=== PATIENT | female | born 1955 | race African-American/Black ===

== ENCOUNTER 2017-04-06 10:04 | Observation (INO) ==
[2017-04-06] MEDS ORDERED: SODIUM CHLORIDE 0.9% 1,000 ML IV STA (10:51)
--- NOTE | 2017-04-06 10:53 | Emergency Department Note ---
Daniel Goodrich Rolonda, am scribing for, and in the presence of, Joe Jamison MD 10: 51. Yaquelin Goodrich James D, MD, personally performed the services described in this documentation, ascribed by Kezia Sanchez in my presence, and it is both accurate and complete . Arrival - Arrival Chief Complaint: Dizziness Stated Complaint: rectal bleed/dizzy ED Nursing Triage Note: Pt c/o weakness, fall, dizziness, and some dark and bright red blood clots in her stool. Mode of Arrival: Ambulatory Limitations: No Limitations Source: Old Records Reviewed, RN Notes Reviewed - History of Present Illness HPI Narrative: Pt is a 62 y/o female who presents to the ED with c/o with an onset of yesterday. Pt has a PMHx HTN and TIA. Pt has PSHx of Cholecystectomy and Colonoscopy. Pt states that she became dizzy and fell yesterday. She confirms that standing up worsens the sxs and last BM was Thursday. She states that she did not eat at all yesterday before going to latter-day and when she got home she attempted to drink Gatorade and she passed out. She states that she has soreness on her right side and she feels "uncomfortable" in her lower abdomen region. She states that she drank 1/2 bottle of Gatorade today. She states that her abdomen is really tender. She stated she noticed bright red and dark clots in her stool while attempting to use the bathroom. Pt denies CP and SOB but confirms diaphoresis. No other complaint/pain in ED. Onset (ago): day(s) Consistency: constant Severity: moderate Severity scale (1-10): 4 Allergies/Adverse Reactions: Allergies Allergy/AdvReac Type Severity Reaction Status Date / Time codeine Allergy Severe ITCHING Verified 11/30/14 05:06 lisinopril Allergy Severe NUMBNESS Verified 11/30/14 05:06 losartan [From Hyzaar] Allergy Severe NUMBNESS Verified 11/30/14 05:06 Home Medications: Home Medications Medication Instructions Recorded Confirmed Type Aspirin [Children's Aspirin] 81 mg PO DAILY 11/30/14 08/17/16 History Nadolol [Corgard] 40 mg PO DAILY 11/30/14 08/17/16 History Triamterene/Hctz 37.5-25 Tab 1 tablet PO DAILY 11/30/14 08/17/16 History [Maxzide 37.5-25] Azithromycin Tab [Zithromax Tab] 250 mg PO DAILY #6 tablet 08/17/16 Rx Cholecalciferol (Vitamin D3) 2,000 unit PO DAILY 08/17/16 08/17/16 History [Vitamin D3] Fluticasone 50 Mcg Nasal [place] 1 spray BOTH NARES DAILY 08/17/16 08/17/16 History [Flonase Nasal [place]] Levothyroxine Tab [Synthroid Tab] 75 mcg PO DAILY@0700 08/17/16 08/17/16 History Sulfameth/Trimeth 800-160 Tab 1 tablet PO BID #14 tablet 09/05/16 Rx [Bactrim Ds Tab] Review of System - Review of System 12 point system: reviewed and no additional remarkable complaints except as stated - Review of System Constitutional: Present: chills, diaphoresis, weakness Eyes: Absent: discharge Head/Ears/Nose/Throat: Absent: earache Respiratory: Absent: cough Cardiovascular: Absent: chest pain Gastrointestinal: Absent: abdominal pain Genitourinary female: Present: other (rectal bleeding; "blood clots in stool"). Absent: hematuria Musculoskeletal: Absent: arm pain, back pain Skin: Absent: rash Neurological: Present: vertigo. Absent: headache Psychiatric: Absent: anxiety Endocrine: Absent: cold intolerance Hematological/Lymphatic: Absent: easy bleeding Allergic/Immunologic: Absent: facial swelling Medical,Surgical,& Family Hx - Medical History Cardio: History of: Hypertension Neurology: History of: TIA Endocrine: History of: Dyslipidemia, Thyroid Disorder ("thyroid cancer", status post thyroidectomy) - Surgical History Cardiac Surgeries: Sugical HX of: Cardiac Catheterization (negative) Thoracic Surgeries: Patient denies;: Organ Transplant HEENT Surgeries: Surgical HX of: Thyroid Surgery (thyroidectomy) Abdominal Surgeries: Surgical HX of: Cholecystectomy (1988), Colonoscopy (2013) Reproductive Surgeries: Surgical HX of;: Breast Surgery (BIOPSY 2012), Hysterectomy, Tubal Ligation - Family History Family History: Reports;: Family Cancer, Family Diabetes, Family Heart Disease, Family Hypertension - Social History Smoking Status: Never smoker Exam Vital Signs: Vital Signs Temperature 98.7 F 04/06/17 12:21 Pulse Rate 74 04/06/17 12:21 Respiratory Rate 18 04/06/17 12:21 Blood Pressure 169/74 04/06/17 12:21 O2 Sat by Pulse Oximetry 99 04/06/17 10:09 GENERAL: This is a well-nourished well-developed black female in no apparent distress. VITAL SIGNS: Reviewed HEENT: Head is atraumatic and normocephalic. Pupils are equal round react to light. Extraocular movements are intact. Oropharynx is benign with moist mucous membranes. NECK: Neck is soft and supple without tenderness. There are no masses. There is no lymphadenopathy. LUNGS: Lungs are clear to auscultation. Chest rises symmetrically. There is no chest wall tenderness. CV: Heart is regular rate and rhythm without murmurs rubs or gallops. ABDOMEN: Abdomen is soft, nontender to palpation. There are no abdominal abnormal masses palpated. There is no organomegaly. Bowel sounds are present and active. SKIN: Skin is warm and dry. No rash. EXTREMITIES: Patient has full range of motion without tenderness. There is no pedal edema. NEUROLOGIC: Awake alert and oriented 4 per Cranial nerves II through XII are intact. Motor is 5 over 5 in all extremities bilaterally. Course - Consultations Consultation #1: Discussed with hospitalist. Patient will be admitted to their service. Time: 13:51 Results - Labs CBC & BMP: 04/06/17 11:42 04/06/17 11:42 Lab Results: I have reviewed the patients labs - Diagnostic Findings Procedure: Abdominal x-ray: image reviewed by me (Nonspecific gas pattern, no free air, gas in the rectum.), Chest x-ray: image reviewed by me (No cardiomegaly, no infiltrates.) Disposition Clinical Impression: Near syncope, Abdominal pain, Lower GI bleed Case discussed with: patient
--- NOTE | 2017-04-06 11:39 | XRay Report ---
2 view abdomen. Indication: Generalized abdominal pain. No previous study. The heart is normal in size. The lung bases are clear. Surgical clips are noted in the right upper quadrant. The bowel gas pattern is within the range of normal. No evidence of obstruction. No abnormal calcifications over the renal outlines. Degenerative changes are seen within the spinal column. Sclerosis along both SI joints consistent with sacroiliitis. Impression: No acute abnormality. PROCEDURE INTERPRETED AT [facility] DEPARTMENT OF RADIOLOGY Final Report Signed by: Dr. Yazmin Stovall
--- NOTE | 2017-04-06 11:41 | XRay Report ---
2 view chest. Indication: Shortness of breath. Comparison: August 17, 2016. The heart and mediastinal contours are unremarkable. The pulmonary vasculature is normal. There is no consolidation, pneumothorax, or pleural effusion. Degenerative changes are noted within the thoracic spine. Surgical clips in the right upper quadrant. Impression: No acute abnormality. PROCEDURE INTERPRETED AT [facility] DEPARTMENT OF RADIOLOGY Final Report Signed by: Dr. Yazmin Stovall
[2017-04-06 11:46] LABS: Basophils % 0.2 % (0.0-0.8); Eosinophils # 0.1 10*3/uL (0.0-0.87); Eosinophils % 0.8 % (0.00-10.9); Hematocrit 44.8 VOL% (35.7-47.0); Hemoglobin 14.7 GM/DL (12.0-16.0); Immature Granulocytes % 0.4 %; Immature Granulocytes Absolute 0.04 #; Lymphocytes # 1.7 10*3/uL (1.4-4.0); Lymphocytes % 14.9 % (21.3-54.2); Mean Corpuscular HGB Conc 32.8 GM/DL (32-36); Mean Corpuscular Hemoglobin 29 PG (27-34); Mean Corpuscular Volume 89.4 FL (87-102); Mean Platelet Volume 11.9 FL (9.6-12.0); Monocytes # 1.1 10*3/uL (0.11-0.8); Monocytes % 9.5 % (1.7-12.7); Neutrophils # 8.4 10*3/uL (1.4-7.4); Neutrophils % 74.2 % (38.7-73.9); Platelet Count 191 T/CUMM (130-400); Red Blood Count 5.01 MC/CUMM (3.8-5.5); Red Cell Distribution Width 12.9 % (9.3-17.3); White Blood Count 11.3 T/CUMM (4-12)
[2017-04-06 11:56] LABS: INR 1.1; PT Patient Result 11.2 SECS
[2017-04-06 12:26] LABS: Calcium 9.6 MG/DL (8.5-10.1); Osmolality,Calculated 276.7 MOS/KG (273-304); Potassium 3.8 MMOL/L (3.5-5.1)
--- NOTE | 2017-04-06 14:28 | Hospitalist History & Physical ---
Assessment and Plan - Time spent with patient Time spent with patient: Greater than 30 minutes (1) Lower GI bleed Status: Acute Assessment and plan: Admit to Hospital Services to ICU for overnight close monitoring. Will consult GI. Will order IV fluids. Will repeat a.m. labs. Will discuss with Dr Greene for further recommendations. Current Visit: Yes (2) Abdominal pain Status: Acute Current Visit: Yes (3) Near syncope Status: Acute Assessment and plan: Patient reports feeling dizzy and experiencing a syncopal episode yesterday. Will admit to ICU for close observation. Will monitor a.m. labs. Current Visit: Yes History of Present Illness Chief complaint: rectal bleeding, GI bleed History of present illness: Ms. Stack is a 62 year old black female with PMHx Hypertension, TIA, thyroid disorder, and dyslipidemia presented to the ED for further evaluation of blood clots in stool both dark and bright red in color. She reports feeling tired and weak today and abdomen with generalized tenderness. She reports that she was dizzy yesterday and experienced syncopal episode. She denies shortness of breath, fever, chills, or chest pain. She reports last GI colonscopy was [address] Laguna and was with negative findings. In ED: Abd XRAY: no acute abnormality. CXR: no acute abnormality. LABS: H& H 14.7 & 44.8. BUN 19 and Creatinine 1.10. After discussion with Dr Jamison in the ED and Dr Greene with Hospitalist Medicine , it was agreed to admit patient for further evaluation of GI bleeding with syncopal episode. Home medications will be reviewed and reconciliation to follow. Home Medications Medication Instructions Recorded Confirmed Type Aspirin [Children's Aspirin] 81 mg PO DAILY 11/30/14 08/17/16 History Nadolol [Corgard] 40 mg PO DAILY 11/30/14 08/17/16 History Triamterene/Hctz 37.5-25 Tab 1 tablet PO DAILY 11/30/14 08/17/16 History [Maxzide 37.5-25] Azithromycin Tab [Zithromax Tab] 250 mg PO DAILY #6 tablet 08/17/16 Rx Cholecalciferol (Vitamin D3) 2,000 unit PO DAILY 08/17/16 08/17/16 History [Vitamin D3] Fluticasone 50 Mcg Nasal [place] 1 spray BOTH NARES DAILY 08/17/16 08/17/16 History [Flonase Nasal [place]] Levothyroxine Tab [Synthroid Tab] 75 mcg PO DAILY@0700 08/17/16 08/17/16 History Sulfameth/Trimeth 800-160 Tab 1 tablet PO BID #14 tablet 09/05/16 Rx [Bactrim Ds Tab] Allergies Allergy/AdvReac Type Severity Reaction Status Date / Time codeine Allergy Severe ITCHING Verified 11/30/14 05:06 lisinopril Allergy Severe NUMBNESS Verified 11/30/14 05:06 losartan [From Hyzaar] Allergy Severe NUMBNESS Verified 11/30/14 05:06 Medical,Surgical,& Family Hx - Medical History Cardio: History of: Hypertension Neurology: History of: TIA Endocrine: History of: Dyslipidemia, Thyroid Disorder ("thyroid cancer", status post thyroidectomy) - Surgical History Cardiac Surgeries: Sugical HX of: Cardiac Catheterization (negative) Thoracic Surgeries: Patient denies;: Organ Transplant HEENT Surgeries: Surgical HX of: Thyroid Surgery (thyroidectomy) Abdominal Surgeries: Surgical HX of: Cholecystectomy (1988), Colonoscopy (2013) Reproductive Surgeries: Surgical HX of;: Breast Surgery (BIOPSY 2012), Hysterectomy, Tubal Ligation - Family History Family History: Reports;: Family Cancer, Family Diabetes, Family Heart Disease, Family Hypertension - Social History Smoking Status: Never smoker Frequency of Alcohol Use: None Type of Drug Use: None Marital Status: Lives With:: Spouse Functional capacity: independent ambulation Review of systems: ROS completed and pertinent positives and negatives in HPI. Exam - Constitutional Vitals: Period Temp Pulse Resp BP Sys/Monzon Pulse Ox Last 24 Hr 98.7 F-98.7 F 74-74 18-18 169-169/74-74 99 General appearance: normal weight - Head Head exam: Present: normal inspection - Eye Eye exam: Present: EOMI Pupils: Present: FREDERIC - Neck Neck exam: Present: normal inspection. Absent: thyromegaly - Respiratory Respiratory exam: Present: clear to auscultation bilaterally. Absent: rhonchi, stridor, wheezes - Cardiovascular Cardiovascular exam: Present: regular rate and rhythm - GI/Abdominal GI/Abdominal exam: Present: normal bowel sounds, tenderness (generalized tenderness), soft. Absent: ascites, distended, guarding, rebound - Extremities Exam Extremities exam: Present: full ROM. Absent: edema - Neurological Exam Neurological exam: Present: alert, oriented X3 - Psychiatric Psychiatric exam: Present: normal affect, normal mood - Skin Skin exam: Present: normal color, warm, dry Results - Labs CBC & BMP: 04/06/17 11:42 04/06/17 11:42 Lab Results: I have reviewed the past 24 hour labs Labs: INR 1.1 PT 11.2 - Diagnostic Findings Procedure: Abdominal x-ray: report reviewed by me (no acute abnormality), Chest x-ray: report reviewed by me (no acute abnormality)
[2017-04-06] MEDS: SODIUM CHLORIDE 0.9% 1,000 ML IV SCH ×2 (15:47→23:50)
--- NOTE | 2017-04-06 16:05 | Gastrointestinal Consult Note ---
Assessment and Plan (1) Lower GI bleed Status: Acute Assessment and plan: This patient likely has 1 to causes for her bleeding, probably diverticular versus ischemic colitis. Rectal bleeding would not be producing the pain in the left lower abdomen although this may be due to residual constipation as well. We will perform colonoscopy tomorrow in order to define the source of the bleeding. It is possible that Dr. Smith may have metastatic colon cancer. If we do not find any polyps will be 5 years before she requires her next colonoscopy. The patient does have a family history of polyps in her father. Risks of the procedure include but are not limited to: Bleeding, infection, perforation, cardiac and pulmonary compromise. Current Visit: Yes (2) Left lower quadrant pain Status: Acute Assessment and plan: Again I suspect this may be due to either lingering constipation versus ischemic colitis. We will check during colonoscopy tomorrow. If no polyps are seen the patient is likely able to wait for another 5 years before her next colonoscopy will be required. Hopefully she will get clean with the above prep. Current Visit: Yes (3) History of gastritis Status: Acute Assessment and plan: This patient does have a history of gastritis and should be taking some Protonix. We have added this to her medication list and should help with her food tolerance. Current Visit: Yes (4) Family history of polyps in the colon Status: Acute Assessment and plan: These were discovered in her father. Current Visit: Yes History of Present Illness Chief complaint: Maroon stools, history of diverticulosis, left lower quadrant pain History of present illness: Ms. Stack is a 62 year old female who is well-known to me from previous upper endoscopy done back on 07/20/15 when the patient was noted to have a tortuous esophagus which was dilated to 57 [place] in order to treat underlying dysphagia. The patient also had a history of GERD and a hiatal hernia with diffuse gastritis which was biopsied for Helicobacter pylori. The biopsies demonstrated no Helicobacter pylori, no gross evidence of lymphoma was seen and biopsies taken from the small bowel failed to show any celiac sprue. She has done well since that time and has not required repeat dilation. The patient had had a previous colonoscopy done by Dr. Raul Smith [facility] at [facility] on 12/21/13 at which time he had seen diverticulosis affecting the descending and sigmoid colon and noted this was a difficult exam due to pelvic adhesions. He stated the patient had a family history of polyps but no polyps were found in her during that exam. He suggested colonoscopy occur again another 5 years. The patient then was in her state of usual health up until Thursday when she developed a state of extreme weakness with some slight dizziness that forced her to lay down on the bed for some minutes and when she got up she was feeling quite "wobbly" she had had some constipation and took some milk of magnesia back on Thursday before this and had not had a Blubaugh been on Thursday but today got up and had a number of stools that were noted to be bright red with some clots initially now has become fairly dark maroon. The patient does have some left lower quadrant pain but states this comes and goes and is not a crampy wavelike contraction, more like one would feel with constipation. Her next colonoscopy was due to be done in December 2018. Her hematocrit here has not changed significantly yet. Her only anti-inflammatory agent is a single baby dose aspirin per day. She has not ingested anything unusual, she is not having any fevers or chills. Currently her hematocrit is 44.8, stools are grossly guaiac positive and maroon. Home Medications Medication Instructions Recorded Confirmed Type Aspirin [Children's Aspirin] 81 mg PO DAILY 11/30/14 04/06/17 History Nadolol [Corgard] 40 mg PO DAILY 11/30/14 04/06/17 History Triamterene/Hctz 37.5-25 Tab 1 tablet PO DAILY 11/30/14 04/06/17 History [Maxzide 37.5-25] Azithromycin Tab [Zithromax Tab] 250 mg PO DAILY #6 tablet 08/17/16 Rx Cholecalciferol (Vitamin D3) 2,000 unit PO DAILY 08/17/16 04/06/17 History [Vitamin D3] Fluticasone 50 Mcg Nasal [place] 1 spray BOTH NARES DAILY 08/17/16 08/17/16 History [Flonase Nasal [place]] Levothyroxine Tab [Synthroid Tab] 100 mcg PO DAILY@0700 08/17/16 04/06/17 History Sulfameth/Trimeth 800-160 Tab 1 tablet PO BID #14 tablet 09/05/16 Rx [Bactrim Ds Tab] Allergies Allergy/AdvReac Type Severity Reaction Status Date / Time codeine Allergy Severe ITCHING Verified 11/30/14 05:06 lisinopril Allergy Severe NUMBNESS Verified 11/30/14 05:06 losartan [From Hyzaar] Allergy Severe NUMBNESS Verified 11/30/14 05:06 Medical,Surgical,& Family Hx - Medical History Cardio: History of: Hypertension Neurology: History of: TIA Endocrine: History of: Dyslipidemia, Thyroid Disorder ("thyroid cancer", status post thyroidectomy) - Surgical History Cardiac Surgeries: Sugical HX of: Cardiac Catheterization (negative) Thoracic Surgeries: Patient denies;: Organ Transplant HEENT Surgeries: Surgical HX of: Thyroid Surgery (thyroidectomy) Abdominal Surgeries: Surgical HX of: Cholecystectomy (1988), Colonoscopy (2013) Reproductive Surgeries: Surgical HX of;: Breast Surgery (BIOPSY 2012), Hysterectomy, Tubal Ligation - Family History Family History: Reports;: Family Cancer, Family Diabetes, Family Heart Disease, Family Hypertension - Social History Smoking Status: Never smoker Frequency of Alcohol Use: None Type of Drug Use: None Review of systems: Constitutional: Denies fever, chills, and vomiting and mild nausea Eyes: Denies dry eyes, and scleral icterus HENT: Denies headaches Cardiovascular: Denies acute chest pain and claudication Respiratory: Denies shortness of breath, wheezing, and difficulty breathing, denies cough Gastrointestinal: As noted in the HPI Genitourinary: Denies dysuria and hematuria Neurologic: Denies vision loss, and loss of sensation Musculoskeletal: Mild joint swelling, joint stiffness, and muscular weakness Psychiatric: Denies depression and domonique symptoms Heme-Lymph: Denies easy bruising, lymph node enlargement or tenderness, night sweats, excessive bleeding Allergies-immunologic: Denies pruritus and rhinorrhea Exam - Constitutional Vitals: Period Temp Pulse Resp BP Sys/[place]zon Pulse Ox Last 24 Hr 98.7 F-98.7 F 74-74 18-18 169-169/74-74 99 General appearance: no acute distress Exam: Constitutional: Well-developed, well-nourished, alert, and in no acute distress Head and face: Head: Normocephalic atraumatic Eyes: Conjunctiva without injection, no gross scleral icterus, pupils equal and round bilaterally Ears: Intact to conversation in both ears Nose: External appearance is normal, nares patent Mouth: Oral mucous membranes moist without erythema dentition noted to be without erosion Neck: Normal appearance, no masses or tenderness, trachea midline Thyroid: Gland midline and appropriate size for age Respiratory: Normal respiratory effort, clear to auscultation without wheezes, rhonchi or rales Cardiovascular: Regular rate and rhythm, normal S1, S2, the exam is without rubs, murmurs or gallops. Gastrointestinal: Mildly tender to deep palpation in the left lower abdomen to palpation, normal active bowel sounds, tone normal without rigidity or guarding, no masses present, no hepatomegaly, no spleen tip felt. The patient has good tone no external fissures or fistulas stool is maroon and grossly guaiac positive. Lymphatic: Neck without adenopathy, axilla without lymphadenopathy present Musculoskeletal: Right and left lower extremities without evidence of edema Skin and subcutaneous tissue: No rashes or ulcerations noted, normal skin turgor, digits and nails without clubbing/cyanosis/deformities. Neurologic: The patient is grossly oriented to person place and time, cranial nerves show tongue movements are normal with normal tongue extrusion midline, light touch sensation is intact. Psychiatric: No hallucinations or delusions are present, does not appear depressed Results - Labs CBC & BMP: 04/06/17 11:42 04/06/17 11:42
[2017-04-06] MEDS: BISACODYL 5 MG TABLET PO SCH (17:52)
[2017-04-06] MEDS ORDERED: POLYETHYLENE GLYCOL POWDER 255 GM BOTTLE PO ONE (18:00)
[2017-04-06] MEDS ORDERED: MAGNESIUM CITRATE 300 ML BOTTLE PO ONE (21:00)
[2017-04-07] MEDS: BISACODYL 5 MG TABLET PO SCH ×2 (00:35→09:02)
[2017-04-07 05:07] LABS: Hematocrit 43.2 VOL% (35.7-47.0)
[2017-04-07 05:14] LABS: Basophils % 0.4 % (0.0-0.8); Eosinophils # 0.2 10*3/uL (0.0-0.87); Eosinophils % 1.7 % (0.00-10.9); Hematocrit 43.9 VOL% (35.7-47.0); Hemoglobin 14.2 GM/DL (12.0-16.0); Immature Granulocytes % 0.4 %; Immature Granulocytes Absolute 0.04 #; Lymphocytes # 2.1 10*3/uL (1.4-4.0); Lymphocytes % 20.2 % (21.3-54.2); Mean Corpuscular HGB Conc 32.3 GM/DL (32-36); Mean Corpuscular Hemoglobin 30 PG (27-34); Mean Corpuscular Volume 91.1 FL (87-102); Mean Platelet Volume 12.3 FL (9.6-12.0); Monocytes # 0.9 10*3/uL (0.11-0.8); Monocytes % 9.1 % (1.7-12.7); Neutrophils % 68.2 % (38.7-73.9); Platelet Count 192 T/CUMM (130-400); Red Blood Count 4.82 MC/CUMM (3.8-5.5); White Blood Count 10.3 T/CUMM (4-12)
[2017-04-07 05:51] LABS: Albumin 3.7 G/DL (3.4-5.0); Bilirubin,Total 0.9 MG/DL (0.2-1.0); Potassium 3.9 MMOL/L (3.5-5.1); Thyroid Stimulating Hormone 0.321 uIU/ml (0.358-3.74); Total Protein 7.5 G/DL (6.4-8.3)
[2017-04-07] MEDS: SODIUM CHLORIDE 0.9% 1,000 ML IV SCH (07:05)
--- NOTE | 2017-04-07 08:32 | Operative Note ---
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 It does not seem to have produced a significant bleed but will take about 2 weeks to heal. She can be released today, she should restart her aspirin in 2 weeks. If her white count is elevated, might consider prophylactic antibiotics to decrease bacterial translocation) Procedure: PROCEDURE: Colonoscopy with hot biopsy polypectomy and cold biopsy for pathology REFERRING PHYSICIAN: Kwesi Greene MD INDICATIONS: Left lower quadrant pain, rectal bleeding, anemia, family history of colon polyps in the patient's father. The prior H&P was reviewed and interrim changes are as noted: No change from GI consultation yesterday ENDOSCOPIST: Garrick Laguna MD ENDOSCOPE: Future Simple Video 100 System colonoscope COLON PREPARATION: 238 gm of PEG containing laxative and 1.9 liters of gatoraid/sports drink and dulcolax 15 mg q8 hours x 3 ASA CLASS: 2 EXAM: CV: regular rate and rhythm Respiratory: Clear without wheezes Abdominal: active bowel sounds Rectal: Good tone, no fissures or fistulas MEDICATION: Per nursing anesthesia protocol, see their notes PROCEDURE: After discussion of the potential risks and benefits of colonoscopy, the informed consent was obtained, from patient or health care surrogate. The patient was then placed in the left lateral decubitus position where sedation was achieved as noted above. Rectal examination was followed by insertion of the colonoscope. The colonoscope was passed under direct visualization to the cecum. Advancement was facilitated by insertion/withdrawl techniques, abdominal pressure and patient positioning. Once the cecal pole was reached, slow withdrawal was performed with the findings as noted below. The patient tolerated the procedure well and without complication. QUALITY OF PREP: Excellent WITHDRAWL TIME: 8 minutes 13 seconds BIOPSIES: Descending, sigmoid, rectal polyp PHOTOGRAPHS: Obtained FINDINGS: The musoca appeared normal in the following regions: Splenic flexure, transverse colon, hepatic flexure, ascending colon and cecum. Position within the cecum was confirmed by ileocecal valve, appendiceal oriface , and the convergence of folds (crows foot). No mass or AVM was noted throughout the colon. There was a (probable) ischemic colitis noted starting in 25 cm and ending at 62 cm, this was most severe in the proximal sigmoid and lower descending colon especially between 44 and 54 cm. Multiple biopsies taken in these 2 regions. There was a single 7 mm polyp noted in the rectum which was removed by hot biopsy that appear to be an adenoma. Mild diverticulosis noted noted in the sigmoid and descending. There was some pelvic scarring in the sigmoid making transit slightly more difficult. 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 It does not seem to have produced a significant bleed but will take about 2 weeks to heal. She can be released today, she should restart her aspirin in 2 weeks. If her white count is elevated, might consider prophylactic antibiotics to decrease bacterial translocation RECOMMENDATIONS: High fiber diet Repeat colonosocopy will be in 5 years due to family history of polyps and personal history of polyps Citrucel 1 tablespoon in 12 oz juice BID: 1 bottle: :11 Follow up by phone for biopsy results in 1-2 weeks by phone Garrick Laguna MD COPY TO: Kwesi Greene MD Anesthesia: MAC Surgeon / Physician: Garrick Laguna Estimated blood loss: minimal Specimens: other (Descending, sigmoid, rectal polyp) Condition: stable Disposition: post procedure unit ([facility] Suite) Results - Labs CBC & BMP: 04/07/17 04:30 04/07/17 04:30 Discharge Plan - Discharge Medications No Action Triamterene/Hctz 37.5-25 Tab [Maxzide 37.5-25] 1 tablet PO DAILY Nadolol [Corgard] 40 mg PO DAILY Aspirin [Children's Aspirin] 81 mg PO DAILY Levothyroxine Tab [Synthroid Tab] 100 mcg PO DAILY@0700 Cholecalciferol (Vitamin D3) [Vitamin D3] 2,000 unit PO DAILY - Follow Up or Referral - Forms/Instructions
--- NOTE | 2017-04-07 08:35 | Anesthesia Post-Op ---
Anesthesia Post OP - Post Ansesthetic Evaluation Patient seen in post op: Yes Resp: within normal limits CV: within normal limits Mental: within normal limits Temp: within normal limits [id number]: within normal limits Nausea and Vomiting: within normal limits Pain: within normal limits
--- NOTE | 2017-04-07 08:37 | Gastrointestinal Progress Note ---
Assessment and Plan (1) Ischemic colitis Status: Acute Assessment and plan: This patient's colonoscopy demonstrated an area of severe ischemic colitis with involvement of the descending and sigmoid regions, the worst involvement being between 44 and 54 cm from the anus but involvement all the way from 25-62 cm total. There is definitely loss of mucosa here with some fairly deep ulceration. The patient's white blood cell count has increased might consider use of Augmentin 875 mg twice daily for prevention of bacterial translocation for approximately a week. If she is able to tolerate a solid diet she can certainly be discharged today. This will just take time to heal. She is to hold her aspirin for approximately 2 weeks and restart at that point. The recurrence of ischemic colitis in the first years approximately 25%. Avoid smokers/smoking. Again, given the patient's lack of decrease in hematocrit would consider discharge today if she is tolerating a diet. Current Visit: Yes (2) Left lower quadrant pain Status: Acute Assessment and plan: Again I suspect this may be due to either lingering constipation versus ischemic colitis. We will check during colonoscopy tomorrow. If no polyps are seen the patient is likely able to wait for another 5 years before her next colonoscopy will be required. Hopefully she will get clean with the above prep. 04/07/17--The pain is from the ischemic colitis. It will improve over the next 2 weeks. Current Visit: Yes (3) History of gastritis Status: Acute Assessment and plan: This patient does have a history of gastritis and should be taking some Protonix. We have added this to her medication list and should help with her food tolerance. 04/07/17--continue Protonix. Current Visit: Yes (4) Family history of polyps in the colon Status: Acute Assessment and plan: These were discovered in her father. 04/07/17--Repeat colonoscopy in 5 years. Current Visit: Yes (5) Colon polyps Status: Acute Assessment and plan: Repeat colonoscopy in 5 years due to this colon polyp found today. Pathology will be back in several days and we will contact the patient with these results. Current Visit: Yes Gastroenterology - PN: Subj Interval history: No new complaints, did not care much for prep. Hungry. Exam (Progress Note) - Constitutional Vitals: Period Temp Pulse Resp BP Sys/Monzon Pulse Ox Last 24 Hr 96.4 F-98.7 F 60-97 12-24 134-169/51-93 93-100 General appearance: mild distress - Head Head exam: Present: normocephalic, atraumatic - Eye Eye exam: Present: EOMI - Respiratory Respiratory exam: Present: clear to auscultation bilaterally. Absent: rhonchi, stridor, wheezes - Cardiovascular Cardiovascular exam: Present: regular rate and rhythm - GI/Abdominal GI/Abdominal exam: Present: normal bowel sounds, tenderness (Left lower and left mid abdomen), soft. Absent: distended, guarding, rebound - Back Exam Back exam: Present: normal inspection - Neurological Exam Neurological exam: Present: alert, oriented X3 - Psychiatric Psychiatric exam: Present: normal affect, normal mood - Skin Skin exam: Present: warm Results - Labs CBC & BMP: 04/07/17 04:30 04/07/17 04:30
[2017-04-07] MEDS ORDERED: PANTOPRAZOLE 40 MG VIAL IV SCH ×2 (09:00)
--- NOTE | 2017-04-07 09:36 | Discharge Summary ---
Hospital Course - Hospital Course Hospital Course: 62-year-old -[place] female with history of hypertension, TIA, thyroid disorder, and dyslipidemia presenting to the ED on 04/06/2017 with GI bleeding and near syncopal episode. Patient was feeling weak and tired and her abdomen had generalized tenderness. She was admitted for IV fluids and Dr. Laguna from gastroenterology was consulted. Patient was taken to the GI lab this morning for colonoscopy by Dr. Laguna. He found ischemic colitis involving the sigmoid and descending colon that was fairly severe. She did not have significant bleeding and states will take approximately 2 weeks for this to heal. He recommended a high-fiber diet, holding her aspirin for 2 weeks and taking Protonix daily. He did find a colon polyp that did not look suspicious and he will call her with biopsy results in 1-2 weeks. Patient feels well with no complaints of abdominal pain. Her H&H's remained normal and stable and her white count is normal. Her abdomen is soft and nontender. Patient has tolerated a regular diet and she will be discharged home. Complete discharge instructions were given to the patient. Care coordination, chart review, and completed discharge paperwork took approximately 35 minutes. - Time spent with patient Time with patient DS: Greater than 30 minutes Diagnosis - Discharge Diagnosis (1) Near syncope Status: Resolved (2) Abdominal pain Status: Resolved (3) Lower GI bleed Status: Resolved (4) Family history of polyps in the colon Status: Chronic (5) Colon polyps Status: Resolved (6) Ischemic colitis Status: Acute Discharge Plan - Discharge Data Disposition: Disch To Home/Self Care Condition at Discharge: Stable Discharge Diet: heart healthy Activity: resume usual activities as tolerated Hygiene: no restrictions Driving: no restrictions Contact your physician if you experience:: Nausea/Vomiting, Bleeding - Discharge Medications New Pantoprazole Tab [Protonix Tab] 40 mg PO DAILY #30 tablet Continue Triamterene/Hctz 37.5-25 Tab [Maxzide 37.5-25] 1 tablet PO DAILY Nadolol [Corgard] 40 mg PO DAILY Levothyroxine Tab [Synthroid Tab] 100 mcg PO DAILY@0700 Cholecalciferol (Vitamin D3) [Vitamin D3] 2,000 unit PO DAILY Discontinued Aspirin [Children's Aspirin] 81 mg PO DAILY - Follow Up or Referral Follow Up: PCP, your [Other] - 2 Weeks - Forms/Instructions Additional Discharge Instructions: hold aspirin for 2wks Exam - Constitutional Vitals: Period Temp Pulse Resp BP Sys/Monzon Pulse Ox Last 24 Hr 96.4 F-98.7 F 60-97 12-24 104-169/51-93 93-100 Exam: 62-year-old -[place] female, no acute distress, alert and oriented Chest clear CV regular rate and rhythm Abdomen soft and nontender Extremities no edema Discharge Results Procedures and tests throughout hospitalization: Pending Orders 04/06/17 15:30 MRSA Surveillence, Inf Control Routine 04/07/17 08:00 Occult Blood, Stool Routine 04/07/17 12:00 Hemoglobin and Hematocrit Q8H 04/07/17 20:00 Hemoglobin and Hematocrit Q8H 04/08/17 04:00 Hemoglobin and Hematocrit Q8H Prothrombin Time INR IN AM 04/08/17 12:00 Hemoglobin and Hematocrit Q8H 04/08/17 20:00 Hemoglobin and Hematocrit Q8H 04/09/17 04:00 Hemoglobin and Hematocrit Q8H Prothrombin Time INR IN AM 04/09/17 12:00 Hemoglobin and Hematocrit Q8H 04/09/17 20:00 Hemoglobin and Hematocrit Q8H Labs on day of discharge: Labs from last 24 hours 04/07/17 04/07/17 04/07/17 04:30 04:30 04:30 WBC RBC Hgb 14.0 Hct 43.2 MCV MCH MCHC RDW Plt Count MPV Neut % (Auto) Lymph % (Auto) Pickett % (Auto) Eos % (Auto) Baso % (Auto) Neut # (Auto) Lymph # (Auto) Pickett # (Auto) Eos # (Auto) Baso # (Auto) Immature Gran % Nucleated RBC % Immature Gran # Nucleated RBCs # Immature Plt Fraction INR PT Patient/Control Mix Sodium 143 Potassium 3.9 Chloride 109 H Carbon Dioxide 26 Anion Gap 11.9 BUN 10 Creatinine 0.90 GFR Calculation 89 BUN/Creatinine Ratio 11.00 Glucose 106 Calculated Osmolality 283.0 Calcium 9.0 Total Bilirubin 0.90 AST 23 ALT 20 Alkaline Phosphatase 115 Total Protein 7.5 Albumin 3.7 Globulin 3.8 H Albumin/Globulin Ratio 0.9 L Free T4 1.20 TSH 3rd Generation 0.321 L Blood Type Antibody Screen 04/07/17 04/07/17 04/06/17 04:30 04:30 11:42 WBC 10.3 RBC 4.82 Hgb 14.2 Hct 43.9 MCV 91.1 MCH 30 MCHC 32.3 RDW 13.0 Plt Count 192 MPV 12.3 H Neut % (Auto) 68.2 Lymph % (Auto) 20.2 L Pickett % (Auto) 9.1 Eos % (Auto) 1.7 Baso % (Auto) 0.4 Neut # (Auto) 7.0 Lymph # (Auto) 2.1 Pickett # (Auto) 0.9 H Eos # (Auto) 0.2 Baso # (Auto) 0.0 Immature Gran % 0.4 Nucleated RBC % 0.0 Immature Gran # 0.04 Nucleated RBCs # 0.00 Immature Plt Fraction 0.0 INR 1.0 PT Patient/Control Mix 11.0 Sodium Potassium Chloride Carbon Dioxide Anion Gap BUN Creatinine GFR Calculation BUN/Creatinine Ratio Glucose Calculated Osmolality Calcium Total Bilirubin AST ALT Alkaline Phosphatase Total Protein Albumin Globulin Albumin/Globulin Ratio Free T4 TSH 3rd Generation Blood Type O POSITIVE Antibody Screen Negative 04/06/17 04/06/17 04/06/17 11:42 11:42 11:42 WBC 11.3 RBC 5.01 Hgb 14.7 Hct 44.8 MCV 89.4 MCH 29 MCHC 32.8 RDW 12.9 Plt Count 191 MPV 11.9 Neut % (Auto) 74.2 H Lymph % (Auto) 14.9 L Pickett % (Auto) 9.5 Eos % (Auto) 0.8 Baso % (Auto) 0.2 Neut # (Auto) 8.4 H Lymph # (Auto) 1.7 Pickett # (Auto) 1.1 H Eos # (Auto) 0.1 Baso # (Auto) 0.0 Immature Gran % 0.4 Nucleated RBC % 0.0 Immature Gran # 0.04 Nucleated RBCs # 0.00 Immature Plt Fraction 0.0 INR 1.1 PT Patient/Control Mix 11.2 Sodium 138 Potassium 3.8 Chloride 103 Carbon Dioxide 29 Anion Gap 9.8 BUN 19 H Creatinine 1.10 H GFR Calculation 74 BUN/Creatinine Ratio 17.00 Glucose 105 Calculated Osmolality 276.7 Calcium 9.6 Total Bilirubin AST ALT Alkaline Phosphatase Total Protein Albumin Globulin Albumin/Globulin Ratio Free T4 TSH 3rd Generation Blood Type Antibody Screen Preliminary micro results at discharge 04/06/17 15:30 MRSA Surveillance Culture - Preliminary Nares - Both Nares (Mrsa screen) No MRSA isolated. DS: Provider Date of admission: 04/06/17 14:22 Primary care physician: . No PCP Attending physician on admission: Kwesi Greene MD Consults: 04/06/17 14:40 Consult to Physician [CONS] Routine Comment: C/O dark stool, bright red clots, seen in clinic Consulting Provider: Garrick Laguna When should Consulting Provider be notified: Now Consult to Specialist Group: Gastroenterology Person Notified: Dr. Laguna Date Notified: 04/06/17 Time Notified: 13:20 Consult Notification Comment: Dr. Laguna in CCU and told while he was here at 1330. Patient reports BM this morning with dark stool and blood clots this a.m. Feeling weak and tired Yesterday: dizzy and syncopal episode 04/06/17 14:45 Consult to Case Mgmt/Social Srvs [CONS] Routine Reason for Case Mgmt/Social Srvs: Discharge Planning 04/06/17 15:28 Consult to Physician [CONS] Routine Comment: Consulting Provider: Discharging clinician: IDANIA Edwards Expected date of discharge: 04/07/17
[2017-04-07 10:59] VITALS: BP 166/74
--- NOTE | 2017-04-08 18:21 | Pathology Report from [facility] ---
[facility] ACCESSION # : [id number] PATIENT NAME : Silvina Santamaria ORDERING DR : Garrick Laguna MD CLINICAL HX: Ischemic colitis POST-OP DX: Same SPECIMEN INFO: #1 Descending colon bx #2 Sigmoid colon bx #3 Rectal colon polyp GROSS DESCRIPTION: The specimen is received in formalin in three parts labeled SILVINA SANTAMARIA . Part #1 labeled DESCENDING consists of a 0.7 x 0.3 cm aggregate of hemorrhagic tissue, submitted in cassette #1.Part #2 labeled SIGMOID consists of a 0.6 x 0.2 cm aggregate covington tissue, submitted in cassette #2.Part # 4 labeled RECTAL POLYP consists of a 0.3 x 0.2 covington tissue fragment, submitted in cassette #3. DIAGNOSIS FOR SILVINA SANTAMARIA: #1 DESCENDING COLON, BIOPSY: Focal superficial mucosal ulceration, acute colitis, and reactive changes.#2 SIGMOID COLON BIOPSY : Focal superficial mucosal ulceration with lamina propria edema with increased acute inflammation.#3 RECTAL POLYP, BIOPSY: Loss of colonic crypts and lamina propria edema with early hyalinization. Note: The findings in the above biopsies are nonspecific but could be seen in an early ischemic colitis. Recommend correlation with clinical and endoscopic findings. COLLECTED DATE: 04/07/2017 [facility] REPORT DATE: 04/08/2017 ELECTRONICALLY SIGNED BY: Lala Aragon M.D. 04/08/2017 - 14:20:45 [facility]
== END 2017-04-07 10:54 | disposition home or self-care (01) ==
LOC: N.ED 10:04 → INTOOBSV 14:22 → SUATTDRO 14:22 → N.EDINP 14:22 → N.CC 15:10
PROVIDERS: ADMIT Hospitalist; ATTEND Internal Medicine
PROC: COLONBX (2017-04-07 07:35)

== ENCOUNTER 2020-10-11 10:35 | Observation (INO) ==
[2020-10-11 11:19] LABS: Basophils % 0.4 % (0.0-0.8); Eosinophils # 0.2 10*3/uL (0.0-0.87); Eosinophils % 3.8 % (0.00-10.9); Hematocrit 38.5 VOL% (35.7-47.0); Hemoglobin 12.3 GM/DL (12.0-16.0); Immature Granulocytes % 0.2 %; Immature Granulocytes Absolute 0.01 #; Lymphocytes % 18.7 % (21.3-54.2); Mean Corpuscular HGB Conc 31.9 GM/DL (32-36); Mean Corpuscular Volume 90.8 FL (87-102); Mean Platelet Volume 11.7 FL (9.6-12.0); Monocytes % 8.2 % (1.7-12.7); Neutrophils % 68.7 % (38.7-73.9); Platelet Count 163 T/CUMM (130-400); Red Blood Count 4.24 MC/CUMM (3.8-5.5); White Blood Count 5.5 T/CUMM (4-12)
[2020-10-11] MEDS ORDERED: SODIUM CHLORIDE 0.9% 1,000 ML IV STA (11:34)
[2020-10-11 11:42] LABS: Albumin 3.5 G/DL (3.4-5.0); Bilirubin,Total 1.4 MG/DL (0.2-1.0); Calcium 9.3 MG/DL (8.5-10.1); Osmolality,Calculated 280.5 MOS/KG (273-304); Potassium 3.9 MMOL/L (3.5-5.1); Total Protein 7.1 G/DL (6.4-8.3)
[2020-10-11 11:55] LABS: Bilirubin,Urine Negative (Negative); Blood, Urine Negative (Negative); Glucose,Urine (UA) Negative (Negative); Hyaline Casts,Urine 3 /LPF (0-3); Ketones,Urine Negative (Negative); Mucus,Urine Occasional /LPF (Occasional); Nitrite,Urine Negative (Negative); Protein,Urine Negative; RBC,Urine <1 /HPF (0-4); Urine Appearance CLEAR (Clear); Urine Color Yellow (Yellow); Urine Specific Gravity 1.018 (1.001-1.035); WBC,Urine <1 /HPF (0-6)
[2020-10-11] MEDS ORDERED: ONDANSETRON 4 MG/2 ML VIAL IV PRN (12:58)
[2020-10-11] MEDS ORDERED: ACETAMINOPHEN 325 MG TABLET PO PRN (12:58)
[2020-10-11] MEDS ORDERED: hydrALAZINE 20 MG/1 ML VIAL IV PRN (12:58)
[2020-10-11] MEDS ORDERED: GLUCAGON 1 MG VIAL IM PRN (12:58)
[2020-10-11] MEDS ORDERED: DEXTROSE 50% 25 GM/50 ML VIAL IV PRN (12:58)
[2020-10-11] MEDS ORDERED: DOCUSATE SODIUM 100 MG CAPSULE PO PRN (12:58)
[2020-10-11] MEDS ORDERED: ENOXAPARIN 40 MG/0.4 ML SYRINGE SUBCUT SCH (13:00)
[2020-10-11] MEDS ORDERED: SODIUM CHLORIDE 0.9% 1,000 ML IV SCH (13:00)
[2020-10-11 13:37] LABS: Risk Ratio 2.68; Thyroid Stimulating Hormone 0.172 uIU/ml (0.358-3.74)
[2020-10-11] MEDS ORDERED: MELATONIN 3 MG TABLET PO PRN (18:34)
[2020-10-11] MEDS ORDERED: DONEPEZIL 10 MG TABLET PO SCH (21:00)
[2020-10-11] MEDS ORDERED: ISONIAZID 300 MG TABLET PO SCH (21:00)
[2020-10-12 06:15] LABS: Basophils # 0.1 10*3/uL (0.0-0.2); Eosinophils # 0.4 10*3/uL (0.0-0.87); Eosinophils % 5.1 % (0.00-10.9); Hematocrit 34.6 VOL% (35.7-47.0); Hemoglobin 11.4 GM/DL (12.0-16.0); Immature Granulocytes % 0.4 %; Immature Granulocytes Absolute 0.03 #; Lymphocytes # 1.5 10*3/uL (1.4-4.0); Lymphocytes % 21.2 % (21.3-54.2); Mean Corpuscular HGB Conc 32.9 GM/DL (32-36); Mean Corpuscular Volume 89.9 FL (87-102); Mean Platelet Volume 11.7 FL (9.6-12.0); Monocytes % 12.4 % (1.7-12.7); Neutrophils % 59.9 % (38.7-73.9); Platelet Count 151 T/CUMM (130-400); Red Blood Count 3.85 MC/CUMM (3.8-5.5); Red Cell Distribution Width 13.1 % (9.3-17.3)
[2020-10-12 06:20] LABS: Calcium 8.6 MG/DL (8.5-10.1); Osmolality,Calculated 284.1 MOS/KG (273-304); Potassium 3.7 MMOL/L (3.5-5.1)
[2020-10-12] MEDS ORDERED: LEVOTHYROXINE 88 MCG TABLET PO SCH (07:30)
[2020-10-12 08:33] VITALS: BP 94/52
[2020-10-12] MEDS ORDERED: PANTOPRAZOLE 40 MG TABLET PO SCH (09:00)
[2020-10-12] MEDS ORDERED: amLODIPine 5 MG TABLET PO SCH (09:00)
[2020-10-12] MEDS ORDERED: TRIAMTERENE/HCTZ 37.5-25 MG TABLET PO SCH (09:00)
[2020-10-12] MEDS ORDERED: SERTRALINE 25 MG TABLET PO SCH (09:00)
[2020-10-12] MEDS ORDERED: CALCIUM (CARBONATE)/VITAMIN D 600 MG-400 UNIT TABLET PO SCH (09:00)
[2020-10-12] MEDS ORDERED: MEMANTINE 5 MG TABLET PO SCH (09:00)
[2020-10-12] MEDS ORDERED: CYANOCOBALAMIN 500 MCG TABLET PO SCH (09:00)
[2020-10-12] MEDS ORDERED: ASPIRIN EC 81 MG TABLET PO SCH (09:00)
[2020-10-12] MEDS ORDERED: DONEPEZIL 10 MG TABLET PO SCH (09:00)
[2020-10-13] MEDS ORDERED: LEVOTHYROXINE 75 MCG TABLET PO SCH (06:30)
[2020-10-16] MEDS ORDERED: ERGOCALCIFEROL 50,000 UNIT CAPSULE PO SCH (09:00)
== END 2020-10-12 14:15 | disposition home health service (06) ==
LOC: N.ED 10:35 → N.EDINP 10:35 → N.5E 14:15
PROVIDERS: ADMIT Internal Medicine; ATTEND Internal Medicine

== ENCOUNTER 2022-03-24 13:19 | Observation (INO) ==
[2022-03-24] MEDS ORDERED: SODIUM CHLORIDE 0.9% 1,000 ML IV STA (14:33)
[2022-03-24 15:32] LABS: Basophils # 0.1 10*3/uL (0.0-0.2); Basophils % 0.3 % (0.0-0.8); Eosinophils # 0.1 10*3/uL (0.0-0.87); Eosinophils % 0.4 % (0.00-10.9); Hematocrit 41.8 VOL% (35.7-47.0); Hemoglobin 13.6 GM/DL (12.0-16.0); Immature Granulocytes % 0.7 %; Immature Granulocytes Absolute 0.11 #; Lymphocytes % 6.8 % (21.3-54.2); Mean Corpuscular HGB Conc 32.5 GM/DL (32-36); Mean Corpuscular Volume 90.3 FL (87-102); Mean Platelet Volume 10.7 FL (9.6-12.0); Monocytes # 1.1 10*3/uL (0.11-0.8); Neutrophils % 84.8 % (38.7-73.9); Platelet Count 220 T/CUMM (130-400); Red Blood Count 4.63 MC/CUMM (3.8-5.5); Red Cell Distribution Width 13.4 % (9.3-17.3); White Blood Count 15.4 T/CUMM (4-12)
[2022-03-24 15:59] LABS: Albumin 3.4 G/DL (3.4-5.0); Bilirubin,Total 0.8 MG/DL (0.20-1.00); Calcium 9.4 MG/DL (8.5-10.1); Osmolality,Calculated 285.4 MOS/KG (273-304); Potassium 3.4 MMOL/L (3.5-5.1); Total Protein 7.3 G/DL (6.4-8.2)
[2022-03-24 16:42] LABS: Mucus,Urine Occasional /LPF (Occasional); RBC,Urine <1 /HPF (0-4); Squamous Epithelial Cell,Urine Occasional /HPF (0-10)
[2022-03-24 16:43] LABS: Bilirubin,Urine Negative (Negative); Blood, Urine Trace mg/dL (Negative); Glucose,Urine (UA) Negative (Negative); Ketones,Urine Negative (Negative); Nitrite,Urine Negative (Negative); Protein,Urine Negative (Negative); Urine Appearance Clear (Clear); Urine Color Yellow (Yellow); Urine Specific Gravity 1.025 (1.001-1.035); Urine Urobilinogen 0.2 eU/dL (<2.0); Urine pH 5.5 (4.5-8.0)
[2022-03-24 16:51] LABS: Barbiturates Screen,Urine Negative (Negative); Benzodiazepines Screen,Urine Negative (Negative); Cannabinoid Screen,Urine Negative (Negative); Opiate Screen,Urine Negative (Negative); Phencyclidine Screen,Urine Negative (Negative)
[2022-03-24] MEDS ORDERED: ACETAMINOPHEN 325 MG TABLET PO PRN (17:36)
[2022-03-24] MEDS ORDERED: ONDANSETRON 4 MG/2 ML VIAL IV PRN (17:36)
[2022-03-24] MEDS ORDERED: SODIUM CHLORIDE 0.9% 1,000 ML IV SCH (19:00)
[2022-03-24] MEDS ORDERED: ZALEPLON 5 MG CAPSULE PO PRN (20:02)
[2022-03-24] MEDS ORDERED: carvediloL 3.125 MG TABLET PO SCH (21:00)
[2022-03-24] MEDS: GABAPENTIN 300 MG CAPSULE PO SCH (23:06)
[2022-03-24] MEDS: MEMANTINE 10 MG TABLET PO SCH (23:06)
[2022-03-24] MEDS: ENOXAPARIN 40 MG/0.4 ML SYRINGE SUBCUT SCH (23:08)
[2022-03-25 06:08] LABS: Basophils % 0.3 % (0.0-0.8); Eosinophils # 0.1 10*3/uL (0.0-0.87); Eosinophils % 1.2 % (0.00-10.9); Hematocrit 34.9 VOL% (35.7-47.0); Hemoglobin 11.3 GM/DL (12.0-16.0); Immature Granulocytes % 0.5 %; Immature Granulocytes Absolute 0.06 #; Lymphocytes # 2.1 10*3/uL (1.4-4.0); Lymphocytes % 17.5 % (21.3-54.2); Mean Corpuscular HGB Conc 32.4 GM/DL (32-36); Mean Corpuscular Volume 89.7 FL (87-102); Mean Platelet Volume 10.7 FL (9.6-12.0); Monocytes % 8.9 % (1.7-12.7); Neutrophils % 71.6 % (38.7-73.9); Platelet Count 176 T/CUMM (130-400); Red Blood Count 3.89 MC/CUMM (3.8-5.5); Red Cell Distribution Width 13.3 % (9.3-17.3); White Blood Count 11.8 T/CUMM (4-12)
[2022-03-25 06:29] LABS: Albumin 2.6 G/DL (3.4-5.0); Bilirubin,Total 0.6 MG/DL (0.20-1.00); Calcium 8.7 MG/DL (8.5-10.1); Osmolality,Calculated 284.3 MOS/KG (273-304); Potassium 2.9 MMOL/L (3.5-5.1); Risk Ratio 3.24; Total Protein 6.3 G/DL (6.4-8.2); VLDL Cholesterol 22.6 MG/DL
[2022-03-25] MEDS: LEVOTHYROXINE 50 MCG TABLET PO SCH (06:48)
[2022-03-25] MEDS ORDERED: SODIUM CHLORIDE 0.9% 1,000 ML IV ONE (07:30)
[2022-03-25] MEDS ORDERED: DONEPEZIL 10 MG TABLET PO SCH (09:00)
[2022-03-25] MEDS ORDERED: TRIAMTERENE/HCTZ 37.5-25 MG TABLET PO SCH (09:00)
[2022-03-25] MEDS ORDERED: DOCUSATE SODIUM 100 MG CAPSULE PO SCH (09:00)
[2022-03-25] MEDS: POTASSIUM CHLORIDE 20 MEQ TABLET PO SCH ×3 (09:03→16:05)
[2022-03-25] MEDS: SERTRALINE 50 MG TABLET PO SCH (09:04)
[2022-03-25] MEDS: carvediloL 3.125 MG TABLET PO SCH ×2 (09:04→16:38)
[2022-03-25] MEDS: ASPIRIN CHEW 81 MG TABLET PO SCH (09:04)
[2022-03-25] MEDS: MEMANTINE 10 MG TABLET PO SCH ×2 (09:04→21:32)
[2022-03-25] MEDS: GABAPENTIN 300 MG CAPSULE PO SCH ×3 (09:04→21:32)
[2022-03-25] MEDS: CHOLECALCIFEROL 1,000 UNIT TABLET PO SCH (09:04)
[2022-03-25] MEDS: PANTOPRAZOLE 40 MG TABLET PO SCH (09:04)
[2022-03-25] MEDS: CYANOCOBALAMIN 500 MCG TABLET PO SCH (09:05)
[2022-03-25] MEDS ORDERED: ERGOCALCIFEROL 50,000 UNIT CAPSULE PO SCH (15:30)
[2022-03-25] MEDS: ENOXAPARIN 40 MG/0.4 ML SYRINGE SUBCUT SCH (21:33)
[2022-03-26 05:35] LABS: Basophils % 0.4 % (0.0-0.8); Eosinophils # 0.2 10*3/uL (0.0-0.87); Eosinophils % 1.7 % (0.00-10.9); Hematocrit 33.4 VOL% (35.7-47.0); Hemoglobin 10.5 GM/DL (12.0-16.0); Immature Granulocytes % 0.4 %; Immature Granulocytes Absolute 0.04 #; Lymphocytes # 1.7 10*3/uL (1.4-4.0); Lymphocytes % 18.5 % (21.3-54.2); Mean Corpuscular HGB Conc 31.4 GM/DL (32-36); Mean Corpuscular Volume 91.8 FL (87-102); Mean Platelet Volume 10.6 FL (9.6-12.0); Monocytes # 0.9 10*3/uL (0.11-0.8); Monocytes % 10.2 % (1.7-12.7); Neutrophils % 68.8 % (38.7-73.9); Platelet Count 168 T/CUMM (130-400); Red Blood Count 3.64 MC/CUMM (3.8-5.5); Red Cell Distribution Width 13.5 % (9.3-17.3); White Blood Count 9.2 T/CUMM (4-12)
[2022-03-26 05:53] LABS: Calcium 8.1 MG/DL (8.5-10.1); Osmolality,Calculated 278.4 MOS/KG (273-304); Potassium 3.4 MMOL/L (3.5-5.1)
[2022-03-26] MEDS: LEVOTHYROXINE 50 MCG TABLET PO SCH (05:59)
[2022-03-26] MEDS ORDERED: MAGNESIUM SULF RIDER 4 GM/100 ML PREMIX IV PRN (07:12)
[2022-03-26] MEDS ORDERED: MAGNESIUM SULF RIDER 2 GM/50 ML PREMIX IV PRN (07:12)
[2022-03-26] MEDS ORDERED: POTASSIUM CHLORIDE 20 MEQ TABLET PO ONE (08:00)
[2022-03-26] MEDS: ASPIRIN CHEW 81 MG TABLET PO SCH (08:49)
[2022-03-26] MEDS: PANTOPRAZOLE 40 MG TABLET PO SCH (08:50)
[2022-03-26] MEDS: SERTRALINE 50 MG TABLET PO SCH (08:50)
[2022-03-26] MEDS: MEMANTINE 10 MG TABLET PO SCH (08:50)
[2022-03-26] MEDS: GABAPENTIN 300 MG CAPSULE PO SCH (08:50)
[2022-03-26] MEDS: CHOLECALCIFEROL 1,000 UNIT TABLET PO SCH ×2 (08:50→09:00)
[2022-03-26] MEDS: CYANOCOBALAMIN 500 MCG TABLET PO SCH ×2 (08:50→08:59)
[2022-03-26] MEDS: carvediloL 3.125 MG TABLET PO SCH (08:50)
[2022-03-26 12:36] VITALS: BP 121/55
[2022-03-26] MEDS ORDERED: DONEPEZIL 10 MG TABLET PO SCH (21:00)
== END 2022-03-26 14:00 | disposition home or self-care (01) ==
LOC: EDUNIT# → EDBD → N.EDINP 13:19 → N.ED 13:19 → N.EDINP 21:29 → N.3E 21:47
PROVIDERS: ADMIT Internal Medicine; ATTEND Internal Medicine